=== PATIENT | male | born 1945 | race Caucasian/White ===

== ENCOUNTER 2020-02-28 15:52 | Outpatient (REF) | payer MEDICARE, BC, SELFPAY | END 2020-02-28 15:53 | disposition home or self-care (01) | LOC: HO.LAB 15:52 | PROVIDERS: Visit Provider Internal Medicine | DX: Z20.828 Contact with and (suspected) exposure to other viral communicable diseases (principal) | CPT/HCPCS: C9803; U0003 ==

== ENCOUNTER 2020-07-15 11:54 | Outpatient (REF) | payer MEDICARE, BC, SELFPAY | END 2020-07-15 11:55 | disposition home or self-care (01) | LOC: HO.HMGCLDS 11:54 | PROVIDERS: PCP Physician Assistant Medical; Visit Provider Internal Medicine | DX: Z20.822 Contact with and (suspected) exposure to COVID-19 (principal) | CPT/HCPCS: C9803; U0003; U0005 ==

== ENCOUNTER 2024-10-18 09:53 | Outpatient (AMB) | payer MEDICARE, SELFPAY ==
--- OUTSIDE RECORDS SUMMARY | 2024-10-18 09:55 | XMS_ITS ---
Author Name [facility] Organization Unknown Encounters Encounter Type Encounter Reason Primary Diagnosis Location Date Ambulatory Type 2 diabetes mellitus without complications Type 2 diabetes mellitus without complications [facility] 09/26/2024 Ambulatory Encounter for genera l adult medical examination without abnormal findings Encounter for general adult medical examination without abnormal findings [facility] 03/11/2024 Ambulatory Other specified symptoms and signs involving the circulatory and respiratory systems Other specified symptoms and signs involving the circulatory and respiratory systems [facility] 12/06/2023 Ambulatory Type 2 diabetes mellitus without complications Type 2 diabetes mellitus without complications [facility] 08/22/2023 Care Team Organization Name Specialty Phone Email Start Date End Da tiesha [facility] KELLY Primary Care 08/22/2023 [facility] JESSICA MENDOZA Primary Care 08/22/202308/11 [facility] Termed, PROVIDER Primary Care 08/19/202210/11
--- OUTSIDE RECORDS SUMMARY | 2024-10-18 09:55 | XMS_ITS | Patient Health Record ---
Author Organization [facility] Address [address] [place] [address] Care Team Providers Care Cold Press Loader Name Role Phone Farhan MODI, Isabella Primary Care Provider Roopa Villeda Unavailable [phone] Allergies Allergen (clinical drug ingredient) Drug/Non Drug Allergy documented on EMR Reaction Allergy Type Onset Date Status Iodine Unknown Drug Allergy Active Merthiolate Unknown Drug Allergy Activ e Latex Latex rash Allergy Active Reason For Referral No Information Medications Medication SIG (Take, Route, Frequency, Duration) Notes Start Date End Date Status Losartan Potassium-HCTZ 12 MG 1 tablet Orally Once a day Active Vitamin C 500 MG 1 tablet Orally Once a day; Duration: 30 day(s) Active Aspirin 81 81 MG 1 tablet Orally Once a day; Duration: 30 day(s) Active Ammonium Lactate 12 % 1 application Externally Twice a day; Duration: 30 days Active Atorvastatin Calcium 80 MG 1 tablet at night Once a day Active Plavix 75 MG 1 tablet Orally Once a day; Duration: 30 day(s) Not-Taking Ketoconazole 2 % 1 application Apply a thin layer to externally to feet, even between toes Twice a day; Duration: 30 days Active Stool Softener Activ e Fiber Active Vitamin D Active Crestor Not-Taking Metoprolol Succinate 100 MG 1 capsule Orally Once a day; Duration: 30 day(s) Active Immunizations Vaccine Route Administration Date Status Comme nts Influenza Unknown 01/13/2020 Administered COVID-19 Moderna Vaccine Unknown 04/15/2020 Administered Second Dose: 05/13/2020 Social History Tobacco Use: Social History Observation Description Date Details (start date - stop date) Never Smoker NA - NA Tobacco use other than smoking: Question Answer Notes Are you an other tobacco user? No Tobacco Control (Standard) Question Answer Notes Tobacco use: Nonsmoker Additional Findings: Tobacco non-user Current no nsmoker AUDIT-C (Standard) Question Answer Notes Did you have a drink contain ing alcohol in the past year? Yes How often did you have a dri nk containing alcohol in the past year? Monthly or less (1 point) How many drinks did you have on a typical day when you were drinking in the past year? 1 or 2 drinks (0 point) How often did you have six o r more drinks on one occasion in the past year? Never (0 point) Points 1 Interpretation Negative Problems Problem Type SNOMED Code ICD Code Onset Dates Problem Status W/U Status Risk Notes Problem Plantar wart (48022782) Plantar wart (B07.0) Active confirmed Problem Lower limb length difference (06405277) Lower limb length difference (M21.70) Active confirmed Vital Signs Blood pressure diastolic 55 mm Hg 08/15/2024 Height 5 ft 7 in in 08/15/2024 Blood pressure systolic 115 mm Hg 08/15/2024 Weight 175 lbs 08/15/2024 BMI 27.41 kg/m2 08/15/2024 Encounters Encounter Location Date Provider Diagnosis [facility] [place] [address] [place] [address] 08/15/2024 Roopa Sheldon Tinea pedis of both feet B35.3 ; Left foot pain M79.672 and Plantar wart B07.0 Assessments Encounter Date Diagnosis (ICD Code) Assessment Notes Treatment Notes Treatment Clinical Notes Section Notes 08/15/2024 Tinea pedis of both feet (ICD-10 - B35.3) 08/15/2024 Left foot pain (ICD-10 - M79.672) 08/15/2024 Plantar wart (ICD-10 - B07.0) Plan Of Treatment No Information Insurance Providers Payer Name Payer Address Payer Phone Subscriber Number Group Number Insured Name Patient Relationship to Insured Coverage Start Date Coverage End Date Medicare National Govt [facility] [address] [address] [id number] Juliano Sylvester Self - patient is the insured [facility] [address] [place] [address] [id number] Juliano Sylvester Self - patient is the insured Medical (General) History Medical History History ICD Code Arthritis Back,Hip,and Knee pain CAD (Cholesterol) Heart disease High blood pressure Vascular grafts Heart valve conditions/replacement Pre-diabetes Surgical History Surgery Date(Month/Year) bypass surgery 03/04/2019 hernia 08/2018 open heart surgery 02/2019 shoulder replacement 2021 shoulder replacement 04/04 Hip surgery 10/2022 left hip replacement 01/03 Hospitalization History Reason Date(Month/Year) [facility]- Vertigo 08/2020
--- OUTSIDE RECORDS SUMMARY | 2024-10-18 09:55 | XMS_ITS | Clinical Summary ---
Author Organization [facility] [address] [facility] Address [address] [place] [address] Phone Care Team Providers Care Public Services Assistant Name Role Phone Isabella Estevez Primary Care Provider [phone] Allergies Active Allergy Reactions Criticality Noted Date Comments Iodinated Contrast Media Anaphylaxis High 06/09/2021 Iodine Hives 02/24/2020 Latex Rash 02/24/2020 Medications nitroglycerin (Nitrostat) 0.[address] 1 tablet (0.4 mg total) under the tongue every 5 (five) minutes if needed for chest pain (up to 3 doses). 30 tablet 02/07/2024 Active acetaminophen (TYLENOL) 500 mg tablet Take 2 tablets (1,000 mg total) by mouth 1 (one) time each day if needed. 04/07/2022 Active aspirin (ASPIR-81 ORAL) Take 81 mg by mouth 1 (one) time each day. Active METOPROLOL SUCCINATE ORAL Take 100 mg by mouth 1 (one) time each day. 08/19/2019 Active DOCUSATE CALCIUM ORAL Take 100 mg by mouth 1 (one) time each day. Active ASCORBIC ACID, VITAMIN C, ORAL Take 500 mg by mouth 1 (one) time each day. Active ERGOCALCIFEROL, VITAMIN D2, ORAL Take 1,000 mg by mouth 1 (one) time each day. Active ezetimibe (ZETIA) 10 mg tablet TAKE ONE TABLET BY MOUTH EVERY DAY 90 tablet 2 04/30/2024 Active atorvastatin (LIPITOR) 40 mg tablet TAKE ONE TABLET BY MOUTH EVERY DAY` 90 tablet 2 04/30/2024 Active cholecalciferol (VITAMIN D-3) 25 mcg (1,000 unit) capsule Take 1 capsule (1,000 Units total) by mouth daily. Active losartan (COZAAR) 25 mg tablet Take 0.5 tablets (12.5 mg total) by mouth 1 (one) time each day. 45 tablet 2 07/05/2024 Active Active Problems Problem Noted Date Diagnosed Date Varicose vein of leg 10/12/2021 Overview (04/18/2024): Last Assessment & Plan: Appears to running family. Encouraged him to wear compressive stockings. We will arrange venous duplex study. Aortic stenosis 06/09/2021 Overview (04/18/2024): Last Assessment & Plan: Aortic valve gradient higher than expected with significant murmur. The gradient has been stable. We will continue monitor for progression. Continue endocarditis prophylaxis. 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 Last Assessment & Plan: Stable without angina symptoms. Will continue current regimen. He is due to have a lipid profile repeated. HTN (hypertension) 02/24/2020 Overview (04/18/2024): Last Assessment & Plan: With whitecoat component. He is home blood pressure monitor is normal. Hyperlipidemia 02/24/2020 Overview (04/18/2024): Goal LDL <70 Last Assessment & Plan: Well-controlled on current regimen. ROXANA (obstructive sleep apnea) 02/24/2020 Overview (04/18/2024): Follows with Dr. Banegas in [place] Colon polyp Encounters Date Type Department Care Team Description 08/01/2024 Telephone Gastroenterology - [address] [place] [id number] Zeinab Woods [place] 07/31/2024 8:14 AM EDT Anesthesia Event [facility] [address] [place] [phone] Augustine Houston DO 07/31/2024 7:48 AM EDT - 07/31/2024 11:59 PM EDT Hospital Encounter [facility] [address] [place] [phone] Hilario Gaines MD Korobkov, Vitaliy, DO Decandio, Laura, CRNA Dysphagia Discharge Disposition: Home or Self Care from Last 3 Months Surgical History Surgery Date Site/Laterality Comments OTHER SURGICAL HISTORY 03/04/2019 PROCEDURE: [place] RPLCMT AORTIC VALVE ANNULUS ENLGMENT NONC SINUS CORONARY ARTERY BYPASS GRAFT 03/04/2019 PROCEDURE: HISTORICAL CABG; COMMENT: x4 HERNIA REPAIR 09/06/2018 Left PROCEDURE: HISTORICAL HERNIA REPAIR/ING HERNIA REPAIR 02/2009 PROCEDURE: HISTORICAL HERNIA REPAIR/UMB COLONOSCOPY 12/11/2016 - 01/10/2017 10 year Medical History Medical History Date Comments Basal cell carcinoma DX:Basal ce ll carcinoma Glenohumeral arthritis DX:Glenoh umeral arthritis IFG (impaired fasting glucose) D X:IFG (impaired fasting glucose) ROXANA (obstructive sleep apnea) DX :ROXANA (obstructive sleep apnea) Osteoarthritis of hips, bilateral DX:Osteoarthritis of hips, bilateral Overweight DX:Overweight Thrombocytopenia (CMS/HCC V24) D X:Thrombocytopenia (HCC) Colon polyp Hypertension Hyperlipidemia Family History Medical History Relation Name Comments Hypertension Brother 1 Other: Acute Idiopathic Pulmonary Fibrosis Brother 1 Other: Acute Idiopathic Pulmonary Fibrosis Brother 2 Coronary artery disease Father Heart attack Father Relation Name Status Comments Brother 1 Brother 2 Father Social History Tobacco Use Types Packs/Day Years Used Date Smoking Tobacco: Former Cigarettes Q uit: 03/13/1990 Smokeless Tobacco: Former Tobacco Cessation:Counseling Given: Not Answered Alcohol Use Standard Drinks/Week Comments Yes 2 (1 standard drink = 0.6 oz pur e alcohol) Interpersonal Safety Answer Date Record ed Physical Abuse 07/31/2024 Verbal Abuse 07/31/2024 Sex and Gender Information Value Date Recorded Sex Assigned at Not on file Legal Sex Male 3:49 PM EST Gender Identity Not on file Sexual Orientation Not on file Obstetrics History Last Filed Vital Signs Vital Sign Reading Time Taken Comments Blood Pressure 118/59 07/31/2024 8:44 AM EDT Pulse 54 07/31/2024 8:44 AM EDT Temperature 36.7 C (98.1 F) 07/31/2024 8:24 AM EDT Respiratory Rate 16 07/31/2024 8:44 AM EDT Oxygen Saturation 96% 07/31/2024 8:34 AM EDT Inhaled Oxygen Concentration - - Weight 77.1 kg (170 lb) 07/23/2024 12:00 PM EDT Height 170.2 cm (5' 7 ) 07/23/2024 12:00 PM EDT Body Mass Index 26.63 07/23/2024 12:00 PM EDT Plan of Treatment Upcoming Encounters Date Type Department Care Team (Late st Contact Info) Description 11/22/2024 7:40 AM EDT Office Visit [facility] [address] [facility] [address] [place] [address] Martha Ambrosio NP [address] [place] [phone] Health Maintenance Due Date Last Done Comments Diabetes: Annual Foot Exam 08/13/1957 Diabetes: Annual Retina Eye Exam 08/13/1957 Hepatitis C Screening 02/19/2022 Medicare Annual Wellness Visit 02/19/2022 Social Influencers of Health Screening 02/19/2022 Diabetes: Annual Urine Albumin-Creatinine Ratio (uACR) 01/23/2024 Diabetes: Blood Sugar Control Test (HGBA1C) 02/21/2024 08/22/2023 Depression Screening 03/13/2024 COVID-19 Vaccine (7 - Moderna risk season) 2024 01/02/2024, 12/13/2022, 12/29/2021, Additional history exists Influenza Vaccine (#1) 2024 , 12/29/2021, 12/10/2020, Additional history exists Diabetes: Annual GFR (Glomerular Filtration Rate) 07/09/2025 07/09/2024 Hypertension/CHF/CAD Annual BMP Blood Test 07/09/2025 07/09/2024 Falls Risk Assessment 07/31/2025 07/31/2024 Cholesterol Screening (Lipid Panel) 07/21/2026 07/21/2021 DTaP,Tdap,and Td Vaccines (3 - Td or Tdap) 07/02/2034 07/02/2024, 11/29/2011 Colorectal Cancer Screening: Colonoscopy Discontinued 12/30/2016 Pneumococcal Vaccine: 50+ Years Completed 01/17/2019, 01/07/2015 RSV Immunization Adult Patients Completed 02/14/2023 Zoster Vaccines Completed 09/08/2023, 04/2023, 11/04/2008 HIB Vaccines Aged Out No longer eligi ble based on patient's age to complete this topic HPV Vaccines Aged Out No longer eligi ble based on patient's age to complete this topic Hepatitis A Vaccines Aged Out No long er eligible based on patient's age to complete this topic Hepatitis B Vaccines Aged Out No long er eligible based on patient's age to complete this topic IPV Vaccines Aged Out No longer eligi ble based on patient's age to complete this topic MMR Vaccines Aged Out No longer eligi ble based on patient's age to complete this topic Meningococcal ACWY Vaccine Aged Out N o longer eligible based on patient's age to complete this topic Meningococcal B Vaccine Aged Out No l onger eligible based on patient's age to complete this topic RSV Immunization Patients Under 20 months Aged Out No longer eligible based on patient's age to complete this topic Varicella Vaccines Aged Out No longer eligible based on patient's age to complete this topic Procedures Procedure Name Priority Date/Time Associated Diagnosis Comments EGD Routine 07/31/2024 8:23 AM EDT Dysphagia TISSUE EXAM Routine 07/31/2024 8:20 AM EDT Dysphagia BASIC METABOLIC PANEL Routine 07/09/2024 7:52 AM EDT Secondary hypertension LIPID PANEL Routine 07/21/2021 EXTERNAL COLONOSCOPY REPORT Routine 12/30/2016 1:32 PM EDT from Last 3 Months or Most Recently Relevant to Health Maintenance Results * EGD Dilation; Anesthesia - MAC; [facility] ENDOSCOPY (07/31/2024 8:23 AM EDT) Anatomical Region Laterality Modality Endoscopy 07/31/2024 8:07 AM EDT Impressions 07/31/2024 8:24 AM EDT - Z-line regular, 38 cm from the incisors. - Normal mucosa was found in the entire esophagus. - Normal stomach. - Normal examined duodenum. - Several biopsies were obtained in the proximal esophagus. Recommendation: - Discharge patient to home. - Resume previous diet. - Continue present medications. - Await pathology results. - Return to my office as previously scheduled. Narrative 07/31/2024 8:24 AM EDT [facility] GI Patient Name: Juliano Sylvester Procedure Date: 07/31/2024 8:07 AM Date of : 1945 Age: 78 Room: ROOM 15 Gender: Male Note Status: Finalized Attending MD: Hilario Gaines MD, Procedure Date No Time: 07/31/2024 Procedure: Upper GI endoscopy Indications: Dysphagia Providers: Hilario Gaines MD Referring MD: Hilario Gaines MD Medicines: Monitored Anesthesia Care Complications: No immediate complications. Estimated Blood Loss: Estimated blood loss: none. Procedure: Pre-Anesthesia Assessment: - ASA Grade Assessment: III - A patient with severe systemic disease. - After reviewing the risks and benefits, the patient was deemed in satisfactory condition to undergo the procedure. After obtaining informed consent, the endoscope was passed under direct vision. Throughout the procedure, the patient's blood pressure, pulse, and oxygen saturations were monitored continuously.The Olympus Gastroscope was introduced through the mouth, and advanced to the third part of duodenum. The upper GI endoscopy was accomplished without difficulty. The patient tolerated the procedure well. Findings: The Z-line was regular and was found 38 cm from the incisors. Normal mucosa was found in the entire esophagus. Several biopsies were obtained in the proximal esophagus with cold forceps for histology. Estimated blood loss was minimal. The exam of the esophagus was otherwise normal. The stomach was normal. The examined duodenum was normal. Procedure Code(s): --- Professional --- 62013, Esophagogastroduodenoscopy, flexible, transoral; with biopsy, single or multiple Diagnosis Code(s): --- Professional --- R13.10, Dysphagia, unspecified CPT copyright 2020 [employer]. All rights reserved. The codes documented in this report are preliminary and upon router operator pin review may be revised to meet current compliance requirements. Hilario Gaines MD 07/31/2024 8:24:48 AM This report has been signed electronically.Hilario Gaines MD Number of Addenda: 0 Note Initiated On: 07/31/2024 8:07 AM Scope In: Scope Out: Endoscopy Department at [facility] - [address] [place] [id number] Procedure Note Hilario Gaines MD - 07/31/2024 [facility] GI Patient Name: Juliano Sylvester Procedure Date: 07/31/2024 8:07 AM Date of : 1945 Age: 78 Room: ROOM 15 Gender: Male Note Status: Finalized Attending MD: Hilario Gaines MD, Procedure Date No Time: 07/31/2024 Procedure: Upper GI endoscopy Indications: Dysphagia Providers: Hilario Gaines MD Referring MD: Hilario Gaines MD Medicines: Monitored Anesthesia Care Complications: No immediate complications. Estimated Blood Loss: Estimated blood loss: none. Procedure: Pre-Anesthesia Assessment: - ASA Grade Assessment: III - A patient with severe systemic disease. - After reviewing the risks and benefits, thepatient was deemed in satisfactory condition to undergo the procedure. After obtaining informed consent, the endoscope was passed under direct vision. Throughout theprocedure, the patient's blood pressure, pulse, and oxygen saturations were monitored continuously.The Olympus Gastroscope was introduced through the mouth, and advanced to the third part of duodenum. The upperGI endoscopy was accomplished without difficulty. The patient tolerated the procedure well. Findings: The Z-line was regular and was found 38 cm from the incisors. Normal mucosa was found in the entire esophagus. Several biopsies were obtained in the proximal esophagus with cold forceps for histology.Estimated blood loss was minimal. The exam of the esophagus was otherwise normal. The stomach was normal. The examined duodenum was normal. Procedure Code(s): --- Professional --- 93476, Esophagogastroduodenoscopy, flexible, transoral; with biopsy, single or multiple Diagnosis Code(s): --- Professional --- R13.10, Dysphagia, unspecified CPT copyright 2020 [employer]. All rights reserved. The codes documented in this report are preliminary and upon router operator pin reviewmay be revised to meet current compliance requirements. Hilario Gaines MD 07/31/2024 8:24:48 AM This report has been signed electronically.Hilario Gaines MD Number of Addenda: 0 Note Initiated On: 07/31/2024 8:07 AM Scope In: Scope Out: Endoscopy Department at [facility] - [address] [place] [phone] IMPRESSION: - Z-line regular, 38 cm from the incisors. - Normal mucosa was found in the entireesophagus. - Normal stomach. - Normal examined duodenum. - Several biopsies were obtained in the proximal esophagus. Recommendation: - Discharge patient to home. - Resume previous diet. - Continue present medications. - Await pathology results. - Return to my office as previously scheduled. us Hilario Gaines MD GI~PROCEDURE ORDERABLES Final Result * Tissue exam (07/31/2024 8:20 AM EDT) Final Diagnosis A. Esophagus, proximal biopsies: - Esophageal squamous mucosa with no specific pathologic changes. - Negative for intraepithelial eosinophils. 08/01/2024 11:17 AM EDT [facility] Gross Description A. Esophagus, proximal biopsies: Labeled proximal esophagus . Received in formalin, are three irregular soft to rubbery, white-pink tissue fragments, approximately ranging from 0.3 cm to 0.6 cm in greatest diameters, which are wrapped in paper and submitted in toto in one cassette, three pieces, multiple levels. 08/01/2024 11:17 AM EDT [facility] Disclaimer Unless otherwise specified, all tissue is 10% NB formalin fixed and paraffin embedded. 08/01/2024 11:17 AM T [facility] Tissue Esophageal structure / Unknown 07/31/2024 8:20 AM EDT 07/31/2024 9:49 AM EDT us Hilario Gaines MD LAB PATHOLOGY ORDERABLES Laine mojica Result [facility] [address] [place] [address], * (ABNORMAL) Basic metabolic panel (07/09/2024 7:52 AM EDT) Sodium 139 133 - 145 mmol/L LAB CHEMISTRY METHOD 07/09/2024 10:55 AM [facility] Potassium 4.4 3.5 - 5.5 mmol/L LAB CHEMISTRY METHOD 07/09/2024 10:55 AM [facility] Chloride 105 96 - 110 mmol/L LAB CHEMISTRY METHOD 07/09/2024 10:55 AM [facility] CO2 28 21 - 32 mmol/L LAB CHEMISTRY METHOD 07/09/2024 10:55 AM [facility] Anion Gap 6 3 - 11 LAB CHEMISTRY METHOD 07/09/2024 10:55 AM [facility] Glucose 120(H) 70 - 100 mg/dL LAB CHEMISTRY METHOD 07/09/2024 10:55 AM [facility] BUN 15 5 - 25 mg/dL LAB CHEMISTRY METHOD 07/09/2024 10:55 AM [facility] Creatinine 0.70 0.70 - 1.30 mg/dL LAB CHEMISTRY METHOD 07/09/2024 10:55 AM [facility] eGFR 95 >=60 mL/min/1. 73m2 LAB CHEMISTRY METHOD 07/09/2024 10:55 AM [facility] Comment:Calculation based on the Chronic Kidney Disease Epidemiology Collaboration (CKD-EPI) equation refit without adjustment for race. BUN/Creatinine Ratio 21.4 LAB CHEMISTRY METHOD 07/09/2024 10:55 AM EDT [facility] Calcium 9.1 8.5 - 10.5 mg/dL LAB CHEMISTRY METHOD 07/09/2024 10:55 AM EDT [facility] Blood Venous blood specimen / Unknown Venipuncture / Unknown 07/09/2024 7:52 AM EDT 07/09/2024 7:52 AM EDT Kevin Morrell MD LAB BLOOD ORDERABLES Final Resul t [facility]) [facility] [address] [place] [address], * Lipid panel (07/21/2021) LDL/HDL Ratio 2 0 - 4 Triglycerides 75 0 - 150 mg/dL Cholesterol 113 0 - 200 mg/dL HDL 51 >=40 mg/dL LDL Cholesterol 47 0 - 100 mg/dL Blood Venous blood specimen / Unknown Historical Provider LAB BLOOD ORDERABLES Laine l Result * External Colonoscopy Report (12/30/2016 1:32 PM EDT) Anatomical Region Laterality Modality Endoscopy Historical Provider GI~PROCEDURE ORDERABLES F inal Result from Last 3 Months or Most Recently Relevant to Health Maintenance Insurance MEDICARE [facility] Care Teams Public Services Assistant Relationship Specialty Start Date End Date Isabella Estevez PA [address] [employer] [place] [id number] PCP - General 10/07/20
--- OUTSIDE RECORDS SUMMARY | 2024-10-18 09:55 | XMS_ITS | Encounter Summary ---
Author Organization [facility] Address [address] [place] [address] Care Team Providers Care Lapidary Apprentice Name Role Phone Isabella Estevez PA-C Primary Care Provi arian Artur Gaines MD Unavailable [phone] Raf Donato MD Unavailable [phone] Kevin Morrell MD Unavailable Hilario Gaines MD Unavailable Unavailable Encounter Details Date Type Department Care Team (Late st Contact Info) Description 10/03/2023 Scanned Document [facility] [address] [place] [address] Isabella Estevez PA-C [address] [place] [address] Social History Tobacco Use Types Packs/Day Years Used Date Smoking Tobacco: Former Cigarettes Q uit: 1993 Smokeless Tobacco: Never Alcohol Use Standard Drinks/Week Comments Yes 1 (1 standard drink = 0.6 oz pur e alcohol) PHQ-2 Answer Date Recorded PHQ-2 Total Score 0 08/22/2023 Sex and Gender Information Value Date Recorded Sex Assigned at Male 12/04/2023 2:52 PM EDT Legal Sex Male 9:42 AM EST Gender Identity Male 12/04/2023 2:52 PM EDT Sexual Orientation Not on file documented as of this encounter Plan of Treatment Upcoming Encounters Date Type Department Care Team (Late st Contact Info) Description 03/17/2025 8:45 AM EST Office Visit [facility] [address] [place] [phone] Isabella Estevez PA-C [address] [place] [address] documented as of this encounter Visit Diagnoses Not on filedocumented in this encounter Care Teams Lapidary Apprentice Relationship Specialty Start Date End Date Isabella Esetvez PA-C [address] [place] [address] PCP - General Internal Medicine 03/29/23 Artur Gaines MD [address] [place] [address] Urology 08/24/23 Raf Donato MD [address] [place] [address] Surgery, Orthopedic 08/24/23 Kevin Morrell MD [address] [place] [address] Cardiology-Scan 08/24/23 Hilario Gaines MD [address] [place] [address] Gastroenterology 08/24/23 Hernandez Crum Physician Dermatology 08/07/23 Francesca Strickland DO Ophthalmology 08/07/23 documented as of this encounter
--- NOTE | 2024-10-18 11:00 | AM.OFFWIN_ITS ---
Intake Vital Signs 3 10/18/24 11:07 Height 5 ft 7 in Weight 160 lb BMI 25.1 BP 126/62 Blood Pressure Location Lt brachial Position Sitting Pulse 61 Pulse Source Pulse Oximeter Temp 97.6 F Temp Source Oral Pulse Oximetry (%) 96 Oxygen Delivery Method Room Air Intake Visit Reasons: EP Rash on face Intake Note: presents with tingly and pimply rash on face Allergies No Known Allergies Allergy (Verified 10/18/24 11:08) Do you need a note to return to daycare/school/sports/work: No HPI EP Rash on face 2 HPI0 Details This is a 79-year-old male patient who presents to the walk-in clinic today with a red rash on his cheeks. He states this has been present for the last 4-6 weeks or so. Every once in a while, he developed small little pustules on his face, which he pops. Denies any pain or itchiness of rash. He states sometimes it feels warm to the touch. Several days ago, he started to use an [id number] ketoconazole cream, and he has noticed that the rash has significantly improved. He wanted to come have it checked, since he was recently in the hospital for several weeks with his who has been getting cancer treatments. 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 He wears a CPAP at night. He states he wipes it down with the provided wipes, but has not sanitized or taken it apart to clean. Review of Systems Const All systems reviewed & are unremarkable except as noted in HPI and below Physical Exam Vital Signs: Last Vital Signs Temp 97.6 F 10/18/24 11:07 Pulse 61 10/18/24 11:07 BP 126/62 10/18/24 11:07 Pulse Ox 96 10/18/24 11:07 Oxygen Delivery Method Room Air 10/18/24 11:07 BMI result Body Mass Index 25.1 Const General: cooperative, healthy appearing, comfortable and no acute distress HEENT Other: rash in areas identified in pictures below. No open areas or pustules/lesions. Slightly warm to touch. Head: Yes normal to inspection General nose exam: Normal external nose present Face images: 2 1. erythematous rash 2. erythematous rash Resp Effort & Inspection: normal respiratory effort Extrem General: Yes capillary refill normal Psych Appearance: grossly normal Mental Status: mental status grossly normal Speech and movement: Normal speech and movement present Assessment & Plan Assessment & Plan (1) Rash of face: Code(s): R21 - Rash and other nonspecific skin eruption Plan: Given that this rash is at location of his CPAP mask, and has improved with the use of anti fungal cream, it is likely that the rash is fungal in nature. I have prescribed him ketoconazole 2% cream to apply b.i.d.. We reviewed use of this. I advised him to take CPAP machine apart and fully clean/sanitize it per the lactation coordinator's instructions. If rash does not improve with treatment, or if symptoms worsen, he can return to the clinic for further evaluation. Patient verbalizes understanding and agrees to plan. Medications: New 2 ketoconazole 2% 1 appl topical BID 30 grams 1RF 7 days R21 - Rash and other nonspecific skin eruption Coding Level of Care Code Est Pt Level 4 (96024) Diagnoses Rash of face R21
[2024-10-18 11:07] VITALS: BP 126/62; PULSE 61; TEMP 36.4; O2SAT 96; BMI 25.1
== END 2024-10-18 11:36 | disposition home or self-care (01) ==
PROVIDERS: PCP Physician Assistant Medical; Visit Provider Nurse Practitioner Family
DX: R21 Rash and other nonspecific skin eruption (principal)

== ENCOUNTER → 2024-10-18 09:53 | Outpatient (BNVA) | payer MEDICARE, SELFPAY | PROVIDERS: PCP Physician Assistant Medical | DX: R21 Rash and other nonspecific skin eruption (principal) | CPT/HCPCS: 99212 ==